=== PATIENT | female | born 1965 | race Caucasian/White ===

== ENCOUNTER 2023-03-23 15:26 | Inpatient (IN) | payer BC, OTHER ==
--- NOTE | 2023-03-23 16:40 | ED ---
General Adult HPI - General Chief complaint: Psychiatric Symptoms Stated complaint: Suicidal Time Seen by Provider: 03/23/23 15:54 Source: patient, RN notes reviewed Mode of arrival: ambulatory Limitations: no limitations - History of Present Illness Initial comments: Patient is a pleasant 57-year-old female presenting to emergency Department with depression and suicidal thoughts. Symptoms have progressed over the past 2-3 weeks. Patient has plan. No homicidal thoughts. No hallucinations. Patient is still taking her medications. Patient has decreased appetite. Patient is sleeping fine. - Related Data Home Medications Medication Instructions Recorded Confirmed Escitalopram [Lexapro] 10 mg PO DIRECTED 03/23/23 03/23/23 Escitalopram [Lexapro] 20 mg PO DIRECTED 03/23/23 03/23/23 Rexulti (Unknown Dose) 1 tab PO DIRECTED 03/23/23 03/23/23 busPIRone HCl [Buspar] 10 mg PO DIRECTED 03/23/23 03/23/23 hydroCHLOROthiazide [Hydrodiuril] 25 mg PO DIRECTED 03/23/23 03/23/23 trandolapriL [Mavik] 2 mg PO DIRECTED 03/23/23 03/23/23 Allergies Allergy/AdvReac Type Severity Reaction Status Date / Time No Known Allergies Allergy Verified 03/23/23 19:08 Review of Systems ROS Statement: Those systems with pertinent positive or pertinent negative responses have been documented in the HPI. ROS Other: All systems not noted in ROS Statement are negative. Constitutional: Denies: fever Eyes: Denies: eye pain ENT: Denies: ear pain Psychiatric: Reports: as per HPI, depression, suicidal thoughts Past Medical History Past Medical History: Hypertension History of Any Multi-Drug Resistant Organisms: None Reported Past Surgical History: Bariatric Surgery, EPS, Tubal Ligation Additional Past Surgical History / Comment(s): lap band, gastric sleeve Past Psychological History: Anxiety, Depression Smoking Status: Never smoker Past Alcohol Use History: Rare Past Drug Use History: None Reported General Exam Limitations: no limitations General appearance: alert, in no apparent distress Head exam: Present: atraumatic Eye exam: Present: normal appearance ENT exam: Present: normal exam Neck exam: Present: normal inspection Respiratory exam: Present: normal lung sounds bilaterally Cardiovascular Exam: Present: regular rate, normal rhythm Extremities exam: Present: normal inspection Neurological exam: Present: alert Psychiatric exam: Present: depressed Skin exam: Present: normal color Course Vital Signs 03/23/23 15:39 Temperature 99.1 F Pulse Rate 98 Respiratory 20 Rate Blood Pressure 167/91 O2 Sat by Pulse 95 Oximetry Medical Decision Making - Medical Decision Making Was pt. sent in by a medical professional or institution (, [facility], [employer], urgent care, hospital, or usp...) When possible be specific @ -No Did you speak to anyone other than the patient for history (EMS, parent, family, police, friend...)? What history was obtained from this source @ -No Did you review nursing and triage notes (agree or disagree)? Why? @ -I reviewed and agree with nursing and triage notes Were old charts reviewed (outside hosp., previous admission, EMS record, old EKG, old radiological studies, urgent care reports/EKG's, usp records)? Report findings @ -No old charts were reviewed Differential Diagnosis (chest pain, altered mental status, abdominal pain women, abdominal pain men, vaginal bleeding, weakness, fever, dyspnea, syncope, headache, dizziness, GI bleed, back pain, seizure, CVA, palpatations, mental health, musculoskeletal)? @ -Differential Mental Health Depression, anxiety, bipolar, psychosis, schizophrenia, borderline personality, situational depression, adjustment disorder, behavioral disorder, brain tumor, m alingering, substance abuse, encephalopathy, medication reaction, dementia, hypothyroidism, degenerative neurologic disorder, lupus.... This is not meant to be all-inclusive list EKG interpreted by me (3pts min.). @ -As above X-rays interpreted by me (1pt min.). @ -None done CT interpreted by me (1pt min.). @ -None done U/S interpreted by me (1pt. min.). @ -None done What testing was considered but not performed or refused? (CT, X-rays, U/S, labs)? Why? @ -None What meds were considered but not given or refused? Why? @ -None Did you discuss the management of the patient with other professionals (professionals i.e. RODRIGO Allen, [employer], lab, RT, psych nurse, child protective services social worker, beaver trapper, teacher, court officer, hospice case manager)? Give summary @ -Case was discussed with psychiatric nurse with plans for admission Was smoking cessation discussed for >3mins.? @ -No Was critical care preformed (if so, how long)? @ -No Were there social determinants of health that impacted care today? How? (Homelessness, low income, unemployed, alcoholism, drug addiction, transportation, low edu. Level, literacy, decrease access to med. care, mcc, rehab)? @ -No Was there de-escalation of care discussed even if they declined (Discuss DNR or withdrawal of care, Hospice)? DNR status @ -No What co-morbidities impacted this encounter? (DM, HTN, Smoking, COPD, CAD, Cancer, CVA, ARF, Chemo, Hep., AIDS, mental health diagnosis, sleep apnea, morbid obesity)? @ -None Was patient admitted / discharged? Hospital course, mention meds given and route, prescriptions, significant lab abnormalities, going to OR and other pertinent info. @ -Patient will be admitted for mental health services. Undiagnosed new problem with uncertain prognosis? @ -No Drug Therapy requiring intensive monitoring for toxicity (Heparin, Nitro, Insulin, Cardizem)? @ -No Were any procedures done? @ -No Diagnosis/symptom? @ -Depression and suicidal ideation Acute, or Chronic, or Acute on Chronic? @ -Acute on chronic, acute Uncomplicated (without systemic symptoms) or Complicated (systemic symptoms)? @ -default Side effects of treatment? @ -No Exacerbation, Progression, or Severe Exacerbation? @ -No Poses a threat to life or bodily function? How? (Chest pain, USA, NC, pneumonia, PE, COPD, DKA, ARF, appy, cholecystitis, CVA, Diverticulitis, Homicidal, Suicidal, threat to staff... and all critical care pts) @ -No - Lab Data Lab Results 03/23/23 Range/Units 17:39 Urine Opiates Screen Not Detected (NotDetected) Ur Oxycodone Screen Not Detected (NotDetected) Urine Methadone Screen Not Detected (NotDetected) Ur Propoxyphene Screen Not Detected (NotDetected) Ur Barbiturates Screen Not Detected (NotDetected) U Tricyclic Antidepress Not Detected (NotDetected) Ur Phencyclidine Scrn Not Detected (NotDetected) Ur Amphetamines Screen Not Detected (NotDetected) U Methamphetamines Scrn Not Detected (NotDetected) U Benzodiazepines Scrn Not Detected (NotDetected) Urine Cocaine Screen Not Detected (NotDetected) U Marijuana (THC) Screen Not Detected (NotDetected) Disposition Clinical Impression: Depression, Suicidal ideation Disposition: TRANSFER TO PSYCH HOSP/UNIT Is patient prescribed a controlled substance at d/c from ED?: No Referrals: Jose Alfredo Starkey MD [Primary Care Provider] - 1-2 days Time of Disposition: 20:00
[2023-03-23 18:09] LABS: Amphetamine Screen,Urine Not Detected (NotDetected); Barbiturate Screen,Urine Not Detected (NotDetected); Benzodiazepines Screen,Urine Not Detected (NotDetected); Cocaine Screen,Urine Not Detected (NotDetected); Methadone Screen, Urine Not Detected (NotDetected); Opiate Screen,Urine Not Detected (NotDetected); Oxycodone Screen, Urine Not Detected (NotDetected); Phencyclidine Screen,Urine Not Detected (NotDetected); Tricyclic Antidepressant,Urine Not Detected (NotDetected); Urn Cannabinoid Scrn Not Detected (NotDetected)
[2023-03-23] MEDS ORDERED: LORazepam 2 MG/ML INJ IM PRN (22:05)
[2023-03-23] MEDS ORDERED: MAG HYDROX/AL HYDROX/SIMETH 30 ML CUP PO PRN (22:05)
[2023-03-23] MEDS ORDERED: ACETAMINOPHEN TAB 325 MG TAB PO PRN (22:05)
[2023-03-23] MEDS ORDERED: MAGNESIUM HYDROXIDE 2,400 MG/30 ML CUP PO PRN (22:05)
[2023-03-23] MEDS ORDERED: LORazepam 1 MG TAB PO PRN (22:05)
[2023-03-23] MEDS ORDERED: DOXEPIN 25 MG CAP PO PRN (23:00)
[2023-03-23 23:03] LABS: Appearance,Urine Clear (Clear); Bilirubin,Urine Negative (Negative); Blood,Urine Negative (Negative); Color,Urine Colorless; Glucose,Urine (UA) Negative (Negative); Ketones,Urine Trace (Negative); Leukocyte Esterase,Urine Negative (Negative); Nitrite,Urine Negative (Negative); PH, Urine 6.5 (5.0-8.0); Protein,Urine Negative (Negative); Specific Gravity,Urine 1.003 (1.001-1.035); Urobilinogen,Urine <2.0 mg/dL (<2.0)
[2023-03-24] MEDS: ESCITALOPRAM 10 MG TAB PO SCH (08:55)
[2023-03-24] MEDS: hydroCHLOROthiazide 25 MG TAB PO SCH (08:56)
[2023-03-24] MEDS ORDERED: lisinopriL 20 MG TAB PO SCH (09:00)
[2023-03-24 09:39] LABS: Basophils % (A) 1 %; Eosinophils # (A) 0.1 k/uL (0-0.7); Eosinophils % (A) 1 %; HCT 45.8 % (34.0-46.0); HGB 15.1 gm/dL (11.4-16.0); Lymphocytes # (A) 1.4 k/uL (1.0-4.8); Lymphocytes % (A) 33 %; MCH 30.2 pg (25.0-35.0); MCV 91.7 fL (80.0-100.0); Mean Platelet Volume 7.4; Monocytes # (A) 0.4 k/uL (0-1.0); Monocytes % (A) 8 %; Neutrophils # (A) 2.4 k/uL (1.3-7.7); Neutrophils % (A) 55 %; Platelet Count 394 k/uL (150-450); RBC 4.99 m/uL (3.80-5.40); RDW 12.3 % (11.5-15.5); WBC 4.3 k/uL (3.8-10.6)
[2023-03-24 09:51] LABS: ALT 15 U/L (4-34); AST 26 U/L (14-36); African American GFR (CKD) 86 (>60 ml/min/1.73 sqM); Albumin 4.1 g/dL (3.5-5.0); Alkaline Phosphatase 59 U/L (38-126); Anion Gap 8 mmol/L; Bilirubin, Delta 0.3 mg/dL (0.0-0.2); Bilirubin,Unconjugated 0.2 mg/dL (0.0-1.1); Blood Urea Nitrogen 9 mg/dL (7-17); Calcium 9.6 mg/dL (8.4-10.2); Carbon Dioxide 31 mmol/L (22-30); Chloride 96 mmol/L (98-107); Glucose 93 mg/dL (74-99); Non-African American GFR(CKD) 74 (>60 ml/min/1.73 sqM); Potassium 4.1 mmol/L (3.5-5.1); Sodium 135 mmol/L (137-145); Total Bilirubin 0.5 mg/dL (0.2-1.3); Total Protein 6.9 g/dL (6.3-8.2)
--- NOTE | 2023-03-24 11:37 | P.HP ---
Psychiatric H&P - . H&P Date: 03/24/23 History & Physical: Allergies Allergy/AdvReac Type Severity Reaction Status Date / Time No Known Allergies Allergy Verified 03/23/23 19:08 Vital Signs Temp 98.8 F 03/23/23 22:57 Pulse 80 03/23/23 22:57 Resp 18 03/23/23 22:57 BP 122/77 03/23/23 22:57 Pulse Ox 98 03/23/23 22:57 FiO2 Intake & Output 03/23/23 03/24/23 03/24/23 18:59 06:59 18:59 Weight 66.224 kg 66.4 kg Laboratory Last Values WBC 4.3 k/uL (3.8-10.6) 03/24/23 08:37 RBC 4.99 m/uL (3.80-5.40) 03/24/23 08:37 Hgb 15.1 gm/dL (11.4-16.0) 03/24/23 08:37 Hct 45.8 % (34.0-46.0) 03/24/23 08:37 MCV 91.7 fL (80.0-100.0) 03/24/23 08:37 MCH 30.2 pg (25.0-35.0) 03/24/23 08:37 MCHC 33.0 g/dL (31.0-37.0) 03/24/23 08:37 RDW 12.3 % (11.5-15.5) 03/24/23 08:37 Plt Count 394 k/uL (150-450) 03/24/23 08:37 MPV 7.4 03/24/23 08:37 Neutrophils % 55 % 03/24/23 08:37 Lymphocytes % 33 % 03/24/23 08:37 Monocytes % 8 % 03/24/23 08:37 Eosinophils % 1 % 03/24/23 08:37 Basophils % 1 % 03/24/23 08:37 Neutrophils # 2.4 k/uL (1.3-7.7) 03/24/23 08:37 Lymphocytes # 1.4 k/uL (1.0-4.8) 03/24/23 08:37 Monocytes # 0.4 k/uL (0-1.0) 03/24/23 08:37 Eosinophils # 0.1 k/uL (0-0.7) 03/24/23 08:37 Basophils # 0.0 k/uL (0-0.2) 03/24/23 08:37 Sodium 135 mmol/L (137-145) L 03/24/23 08:37 Potassium 4.1 mmol/L (3.5-5.1) 03/24/23 08:37 Chloride 96 mmol/L (98-107) L 03/24/23 08:37 Carbon Dioxide 31 mmol/L (22-30) H 03/24/23 08:37 Anion Gap 8 mmol/L 03/24/23 08:37 BUN 9 mg/dL (7-17) 03/24/23 08:37 Creatinine 0.88 mg/dL (0.52-1.04) 03/24/23 08:37 Est GFR (CKD-EPI)AfAm 86 (>60 ml/min/1.73 sqM) 03/24/23 08:37 Est GFR (CKD-EPI)NonAf 74 (>60 ml/min/1.73 sqM) 03/24/23 08:37 Glucose 93 mg/dL (74-99) 03/24/23 08:37 Calcium 9.6 mg/dL (8.4-10.2) 03/24/23 08:37 Total Bilirubin 0.5 mg/dL (0.2-1.3) 03/24/23 08:37 Conjugated Bilirubin 0.0 mg/dL (0.0-0.3) 03/24/23 08:37 Unconjugated Bilirubin 0.2 mg/dL (0.0-1.1) 03/24/23 08:37 Delta Bilirubin 0.3 mg/dL (0.0-0.2) H 03/24/23 08:37 AST 26 U/L (14-36) 03/24/23 08:37 ALT 15 U/L (4-34) 03/24/23 08:37 Alkaline Phosphatase 59 U/L (38-126) 03/24/23 08:37 Total Protein 6.9 g/dL (6.3-8.2) 03/24/23 08:37 Albumin 4.1 g/dL (3.5-5.0) 03/24/23 08:37 TSH 0.699 mIU/L (0.465-4.680) 03/24/23 08:37 Urine Color Colorless 03/23/23 17:39 Urine Appearance Clear (Clear) 03/23/23 17:39 Urine pH 6.5 (5.0-8.0) 03/23/23 17:39 Ur Specific [place] 1.003 (1.001-1.035) 03/23/23 17:39 Urine Protein Negative (Negative) 03/23/23 17:39 Urine Glucose (UA) Negative (Negative) 03/23/23 17:39 Urine Ketones Trace (Negative) H 03/23/23 17:39 Urine Blood Negative (Negative) 03/23/23 17:39 Urine Nitrite Negative (Negative) 03/23/23 17:39 Urine Bilirubin Negative (Negative) 03/23/23 17:39 Urine Urobilinogen <2.0 mg/dL (<2.0) 03/23/23 17:39 Ur Leukocyte Esterase Negative (Negative) 03/23/23 17:39 Urine Opiates Screen Not Detected (NotDetected) 03/23/23 17:39 Ur Oxycodone Screen Not Detected (NotDetected) 03/23/23 17:39 Urine Methadone Screen Not Detected (NotDetected) 03/23/23 17:39 Ur Propoxyphene Screen Not Detected (NotDetected) 03/23/23 17:39 Ur Barbiturates Screen Not Detected (NotDetected) 03/23/23 17:39 U Tricyclic Antidepress Not Detected (NotDetected) 03/23/23 17:39 Ur Phencyclidine Scrn Not Detected (NotDetected) 03/23/23 17:39 Ur Amphetamines Screen Not Detected (NotDetected) 03/23/23 17:39 U Methamphetamines Scrn Not Detected (NotDetected) 03/23/23 17:39 U Benzodiazepines Scrn Not Detected (NotDetected) 03/23/23 17:39 Urine Cocaine Screen Not Detected (NotDetected) 03/23/23 17:39 U Marijuana (THC) Screen Not Detected (NotDetected) 03/23/23 17:39 Coronavirus (PCR) Not Detected (Not Detectd) 03/23/23 20:14 03/24/23 11:36 IDENTIFYING DATA: Patient is a , employed, 57-year-old female sam ledbetter presents to the hospital on 03/23/2023 for worsening depression and suicidal ideation the context of bereavement. HPI: Patient presented to the hospital on 03/23/2023, brought into the emergency department by family for psychiatric assessment. The patient has been dealing with significant grief after the unexpected deaths of her brother and her [id number]. She reported to the PES nurse that she has been suicidal with plans to overdose on Ativan, Rexulti, and Lexapro. The patient signed herself voluntarily onto the psychiatric unit. Upon evaluation on the psychiatric unit, the patient informs this provider that her brother 3 weeks ago. A week and a half later, the patient reports that her [id number] also . She states that both deaths were unexpected. She does report that over the past 3 weeks she has been experiencing significant depression and anxiety. She reports a decreased appetite with unintentional weight loss of 10 pounds. She endorses anhedonia, helplessness, hopelessness, and suicidal ideation with a plan to overdose. However, the patient reports that she made no attempts. She does report a previous attempt at suicide back in 1986 by cutting her wrists. 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 She is currently on leave from work. She does report elevated anxiety and panic prior to work. The patient does not endorse any auditory or visual hallucinations. She denies any paranoia or other delusions. She reports no significant symptoms of bipolar disorder. She denies any periods of excessive energy, grandiosity, or increased goal-directed activity. PAST PSYCHIATRIC HISTORY: Patient states that she has been previous diagnoses of depression and anxiety. She recalls being previously prescribed Pamelor and Celexa. She is currently on a regimen of Lexapro, Buspar, and Rexulti. She reports that she was last hospitalized on this psychiatric unit back in 1986. She is currently open with [facility] social work nurse and sees Dr. Pepe. Prior to this, she was open with Dr. Monique. He reports one prior attempt at suicide back in 1986 by cutting herself. She was previously attending partial hospitalization program back in 1992. PMH: Past Medical History: Hypertension History of Any Multi-Drug Resistant Organisms: None Reported Past Surgical History: Bariatric Surgery, EPS, Tubal Ligation Additional Past Surgical History / Comment(s): lap band, gastric sleeve Past Psychological History: Anxiety, Depression Smoking Status: Never smoker Past Alcohol Use History: Rare Past Drug Use History: None Reported ALLERGIES: NO KNOWN DRUG ALLERGIES CHEMICAL DEPENDENCY HISTORY: The patient denies any significant alcohol use. She reports no marijuana, tobacco, or illicit drug use. FAMILY PSYCHIATRIC/SUBSTANCE USE HISTORY: The patient reports that her sister abuses alcohol. She reports that many family members including both of her parents and multiple siblings have depression. SOCIAL HISTORY: Patient was born and raised in [place], [place]. She is currently to her for one year. This is her second marriage. Her first from cancer 6 years ago. She has 2 sons. She reports good support from her family. She currently lives with her . 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 She reports no legal history or service. She states that she is [employer]. MENTAL STATUS EXAM: General Appearance: Patient appears to be stated age is alert, directable, and attempts to cooperate. Patient appears to have fair hygiene and grooming. Behavior: Patient is seated without any agitated behavior. Eye contact is appropriate. Patient is appropriately tearful throughout the interview. Speech: Patient's speech is fluent and nonpressured. Mood/Affect: Patient reports their mood is depressed, affect is congruent and tearful. Suicidality/Homicidality: Patient is denying any current suicidal or homicidal ideation. Perceptions: Patient denies any visual hallucinations and denies any auditory hallucinations Though content/process: There is no evidence of any delusional thought content and thought process is linear and goal-directed. Memory and concentration: AOX3, grossly intact for the purposes of this session. Can spell "WORLD" backwards Judgment and insight: Fair STRENGTHS/WEAKNESSES: Strength is that the patient has good insight, supportive family, orthodox beliefs against suicide, and is actively seeking help. Weakness is that the patient has prior attempts at suicide. INTELLECT: average IMPRESSIONS: Major depressive disorder, recurrent, severe, with anxious features PLAN: -Patient is admitted under voluntary status to MHU for stabilization of psychiatric symptoms and safety. Patient signed adult voluntary form and medication consent and is placed in patient's chart. -Approximately 30 minutes were spent providing the patient with psychoeducation and bereavement counseling. -Medications : Will start patient on Lexapro 30 mg by mouth daily for depression/anxiety BuSpar 15 mg by mouth twice a day for anxiety Restoril 7.5 mg by mouth at bedtime for acute stress -Ativan PRN for agitation/aggression -Patient was informed of the risks, benefits and side effects of the medication and patient verbally consented to taking the medications. Patient signed med consent form and was placed in chart. -Internal Medicine consult to perform medical evaluation and physical. -SW on board for discharge planning. Encourage patient to participate in groups to work on coping skills. 03/24/23 11:36
--- NOTE | 2023-03-24 14:52 | P.MDCNMH ---
History of Present Illness H&P Date: 03/24/23 HISTORY OF PRESENT ILLNESS This is a 57-year-old female with past medical history of hypertension, g astroesophageal reflux disease, major depressive disorder, bulimia nervosa, obstructive sleep apnea. Patient presented to [facility] emergency center yesterday with concern for depression and suicidal thoughts of been going on for the past 2-3 weeks with plan to overdose. Triggering factor seems to be the of her brother and also [id number]. No homicidal thoughts. No hallucinations. Patient's been taking all of her medications as directed. She has been sleeping adequately but does have a decreased appetite. Her initial blood pressure 167/91, afebrile, heart rate 98, pulse ox 95% on room air. Urine drug screen was negative. CBC within normal limits. Sodium 135, potassium 4.1, chloride 96, CO2 31, BUN 9 and creatinine 0.88. TSH 0.699. Liver function tests within normal limits. Glucose 74. Calcium 9.6. Urinalysis negative for infection. Covid 19 not detected. Patient is seen today on the mental health unit. REVIEW OF SYSTEMS Constitutional: No fever, no chills, no night sweats. No weight change. No weakness, fatigue or lethargy. No daytime sleepiness. EENT: No headache. No blurred vision or double vision, no loss of vision. No loss of Hearing, no ringing in the ears, no dizziness. No nasal drainage or congestion. No epistaxis. No sore throat. Lungs: No shortness of breath, cough, no sputum production. No wheezing. Cardiovascular: No chest pain, no lower extremity edema. No palpitations. No paroxysmal nocturnal dyspnea. No orthopnea. No lightheadedness or dizziness. No syncopal episodes. Abdominal: No abdominal pain. No nausea, vomiting. No diarrhea. No constipation. No bloody or tarry stools. No loss of appetite. Genitourinary: No dysuria, increased frequency, urgency. No urinary retention. Musculoskeletal: No myalgias. No muscle weakness, no gait dysfunction, no frequent falls. No back pain. No neck pain. Integumentary: No wounds, no lesions. No rash or pruritus. No unusual bruising. No change in hair or nails. Neurologic: No aphasia. No facial droop. No change in mentation. No head injury. No headache. No paralysis. No paresthesia. Psychiatric: Reports depression. Reports anxiety. No mood swings. Endocrine: No abnormal blood sugars. No weight change. No excessive sweating or thirst. No cold intolerance. MEDICAL HISTORY Hypertension Gastroesophageal reflux disease Major depressive disorder Bulimia no gross Obstructive sleep apnea SURGICAL HISTORY Gastric sleeve with hernia repair 05/2016 Tonsil removal 1969 Tubal ligation 1997 SOCIAL HISTORY Patient is a nonsmoker. No illicit drug use. She does drink alcohol 2-3 times per week. No marijuana use. FAMILY HISTORY Father at age 66 from colon cancer with history of hypertension and [place]. Mother at age 74 from lung cancer with history of hypertension. Patient has 1 brother that has recently with throat cancer. Patient has 4 sisters and 3 have diabetes and 3 with hypertension one with history of [place]. Patient's 1 son with no major medical problems and one daughter healthy. PHYSICAL EXAMINATION Gen: This is a 57-year-old female. She is noted to be in no acute distress. HEENT: Head is atraumatic, normocephalic. Pupils equal, round. Sclerae is anicteric. NECK: Supple. No JVD. No lymphadenopathy. No thyromegaly. LUNGS: Clear to auscultation. No wheezes or rhonchi. No intercostal retr actions. HEART: Regular rate and rhythm. No murmur. ABDOMEN: Soft. Bowel sounds are present. No masses. No tenderness. EXTREMITIES: No pedal edema. No calf tenderness. NEUROLOGICAL: Patient is awake, alert and oriented x3. Cranial nerves 2 through 12 are grossly intact. ASSESSMENT AND PLAN 1. Depression with suicidal ideation. Patient admitted to the mental health unit. Continue current plan per psychiatry. 2. Generalized anxiety disorder. Continue as in #1. 3. Hypertension. Continue his hydrochlorothiazide 25 mg daily. 4. Gastroesophageal reflux disease. Continue omeprazole 40 mg daily 5. Obstructive sleep apnea, stable. Thank you kindly for this consultation. We will be happy to follow along with you as needed. Impression and plan of care have been directed as dictated by the signing physician. Jnais Rosa nurse practitioner acting as scribe for signing physician. Past Medical History Past Medical History: GERD/Reflux, Hypertension, Sleep Apnea/CPAP/BIPAP History of Any Multi-Drug Resistant Organisms: None Reported Past Surgical History: Bariatric Surgery, Tonsillectomy, Tubal Ligation Additional Past Surgical History / Comment(s): lap band, gastric sleeve Past Anesthesia/Blood Transfusion Reactions: No Reported Reaction Smoking Status: Never smoker - Past Family History Mother History Unknown: Yes Medications and Allergies Home Medications Medication Instructions Recorded Confirmed Type Escitalopram [Lexapro] 30 mg PO DAILY 03/23/23 03/24/23 History Omeprazole 40 mg PO AC-[id number] 03/23/23 03/24/23 History busPIRone HCl [Buspar] 10 mg PO BID 03/23/23 03/24/23 History hydroCHLOROthiazide [Hydrodiuril] 25 mg PO DAILY 03/23/23 03/24/23 History trandolapriL [Mavik] 2 mg PO BID 03/23/23 03/24/23 History Brexpiprazole [Rexulti] 2 mg PO HS 03/24/23 03/24/23 History Allergies Allergy/AdvReac Type Severity Reaction Status Date / Time No Known Allergies Allergy Verified 03/23/23 19:08 Physical Exam Vitals: Vital Signs Temp Pulse Pulse Resp BP BP Pulse Ox 03/23/23 22:57 98.8 F 80 18 122/77 98 03/23/23 15:39 99.1 F 98 20 167/91 95 Intake and Output 03/23/23 03/24/23 03/24/23 22:59 06:59 14:59 Other: Weight 66.4 kg 66.4 kg Cranial Nerve Examination - Cranial Nerves Cranial Nerve I- Olfactory: Intact Cranial Nerve II- Optic: Intact Cranial Nerve III- Oculomotor: Intact Cranial Nerve IV- Trochlear: Intact Cranial Nerve V- Trigeminal: Intact Cranial Nerve - Abducens: Intact Cranial Nerve VII- Facial: Intact Cranial Nerve VIII- Auditory: Intact Cranial Nerve IX- Glossopharyngeal: Intact Cranial Nerve X- Vagus: Intact Cranial Nerve XI- Accessory: Intact Cranial Nerve XII- Hypoglossal: Intact Results CBC & Chem 7: 03/24/23 08:37 03/24/23 08:37 Labs: Abnormal Lab Results - Last 24 Hours (Table) 03/23/23 03/24/23 Range/Units 17:39 08:37 Sodium 135 L (137-145) mmol/L Chloride 96 L (98-107) mmol/L Carbon Dioxide 31 H (22-30) mmol/L Delta Bilirubin 0.3 H (0.0-0.2) mg/dL Urine Ketones Trace H (Negative)
[2023-03-24 16:09] LABS: Chol/HDL Ratio 2.38 Ratio; LDL Cholesterol,Calculated 104.9 mg/dL (0.0-131.0); VLDL Calculation 11.08 mg/dL (5.00-40.00)
[2023-03-24] MEDS: TEMAZEPAM 7.5 MG CAP PO SCH (21:44)
[2023-03-24] MEDS: busPIRone HCl 5 MG TAB PO SCH (21:44)
[2023-03-25 06:58] VITALS: RESP 14
[2023-03-25] MEDS: ESCITALOPRAM 10 MG TAB PO SCH (09:49)
[2023-03-25] MEDS: busPIRone HCl 5 MG TAB PO SCH ×2 (09:49→21:35)
[2023-03-25] MEDS: hydroCHLOROthiazide 25 MG TAB PO SCH (09:49)
[2023-03-25] MEDS: PANTOPRAZOLE 40 MG TABLET PO SCH (09:50)
--- NOTE | 2023-03-25 11:34 | P.PN ---
Progress Note - Text Progress Note Date: 03/25/23 Interval History: Patient was seen in group and was directable and agreeable to speak with video game script writer in the office. Patient is currently reporting suicidal ideation but states that it is not as present as it was before this admission. She is reporting no homicidal ideation. She rates her severity of symptoms 7 out of 10 with 10 being very severe. She reports improved sleep and decreased anxiety. She also reports that she has been less tearful. She has been adherent with her medications and is not reporting any significant side effects. At this time patient denies any suicidal or homical ideations, intent or plan. Patient denies any auditory, visual hallucinations and denies any paranoia or delusions. Patient denies any side effects from the medications and has been compliant with meds. She is agreeable to switching to Pamelor. Mental Status Exam: General Appearance: Patient appears to be stated age is alert, directable, and cooperative. Behavior: Patient is calmly seated without any agitated behavior. Speech: Patient's speech is fluent and nonpressured. Mood/Affect: Mood is improving mildly, affect is congruent and sad Suicidality/Homicidality: Patient denies any current suicidal or homicidal ideation. Perceptions: Patient denies any visual hallucinations and denies any auditory hallucinations Though content/process: There is no evidence of any delusional thought content and thought process is linear and goal-directed. Memory and concentration: AOX3, grossly intact for the purposes of this session Judgment and insight: Improving mildly Vital Signs Temp 97 F L 03/25/23 06:56 Pulse 75 03/25/23 09:53 Resp 14 03/25/23 06:56 BP 100/59 03/25/23 09:53 Pulse Ox 98 03/23/23 22:57 FiO2 Laboratory Results - Last 24 Hours 03/24/23 03/24/23 08:37 08:[address] Glu mg/dL 120 Hemoglobin A1c 5.8 Triglycerides 55.40 Cholesterol 200.00 LDL Cholesterol, Calc 104.9 VLDL Cholesterol, Calc 11.08 HDL Cholesterol 84.00 H Cholesterol/HDL Ratio 2.38 Assessment Major depressive disorder, recurrent, severe, with anxious features Plan: -Patient continues to meet criteria for inpatient psychiatric admission for s ymptom stabilization and safety. Patient has signed adult voluntary form and medication consent and was placed in patient's chart. -Medications: Discontinue Lexapro. Start Pamelor 10 mg by mouth at bedtime for depression/anxiety BuSpar 15 mg by mouth twice a day for anxiety Restoril 7.5 mg by mouth at bedtime for acute stress -When necessary Ativan for agitation/aggression. -SW on board for discharge planning. Encouraged the patient to participate in milieu.
[2023-03-25] MEDS ORDERED: NORTRIPTYLINE 10 MG CAP PO SCH (21:00)
[2023-03-25] MEDS: TEMAZEPAM 7.5 MG CAP PO SCH (21:35)
[2023-03-26] MEDS: hydroCHLOROthiazide 25 MG TAB PO SCH (08:55)
[2023-03-26] MEDS: busPIRone HCl 5 MG TAB PO SCH ×2 (08:55→21:35)
[2023-03-26] MEDS: PANTOPRAZOLE 40 MG TABLET PO SCH (08:55)
--- NOTE | 2023-03-26 10:21 | P.PN ---
Progress Note - Text Progress Note Date: 03/26/23 Interval History: Patient was seen in group and was directable and agreeable to speak with mortgage underwriter in the office. Currently, the patient reports that she is feeling significant better in regards to her target symptoms of depression. She reports that she write the letter for her brother. She reports that she is getting significant support from her . She states that she had a good discussion with him regarding her leaving her current job at [employer]. The patient is currently denying any suicidal or homicidal ideation, intention, and/or plan. She is not reporting any auditory or visual hallucinations. She denies any paranoia or other delusions. She reports that she is sleeping well. She reports no significant side effects of her medication. Mental Status Exam: General Appearance: Patient appears to be stated age is alert, directable, and cooperative. Behavior: Patient is calmly seated without any agitated behavior. Speech: Patient's speech is fluent and nonpressured. Mood/Affect: Mood is improving mildly, affect is congruent and euthymic today Suicidality/Homicidality: Patient denies any current suicidal or homicidal ideation. Perceptions: Patient denies any visual hallucinations and denies any auditory hallucinations Though content/process: There is no evidence of any delusional thought content and thought process is linear and goal-directed. Memory and concentration: AOX3, grossly intact for the purposes of this session Judgment and insight: Improving mildly Vital Signs Temp 97.1 F L 03/26/23 08:56 Pulse 82 03/26/23 08:56 Resp 14 03/25/23 06:56 BP 126/69 03/26/23 08:56 Pulse Ox 98 03/23/23 22:57 FiO2 Assessment Major depressive disorder, recurrent, severe, with anxious features Plan: -Patient continues to meet criteria for inpatient psychiatric admission for symptom stabilization and safety. Patient has signed adult voluntary form and medication consent and was placed in patient's chart. Anticipate discharge tomorrow. -Medications: Increase Pamelor to 20 mg by mouth at bedtime for depression/anxiety BuSpar 15 mg by mouth twice a day for anxiety Restoril 7.5 mg by mouth at bedtime for acute stress -When necessary Ativan for agitation/aggression. -SW on board for discharge planning. Encouraged the patient to participate in milieu.
[2023-03-26] MEDS ORDERED: NORTRIPTYLINE 10 MG CAP PO SCH (21:00)
[2023-03-26] MEDS: TEMAZEPAM 7.5 MG CAP PO SCH (21:36)
[2023-03-27 06:52] VITALS: BP 101/59; PULSE 50; TEMP 96.8
[2023-03-27] MEDS: busPIRone HCl 5 MG TAB PO SCH (09:08)
[2023-03-27] MEDS: PANTOPRAZOLE 40 MG TABLET PO SCH (09:08)
[2023-03-27] MEDS: hydroCHLOROthiazide 25 MG TAB PO SCH (09:08)
--- NOTE | 2023-03-27 11:12 | P.DS ---
Providers Date of admission: 03/23/23 22:03 Expected date of discharge: 03/27/23 Attending physician: Benito Berger MD Consults: 03/23/23 22:05 Consult Physician Routine Consulting Provider: Jose Alfredo Starkey Consult Reason/Comments: H&P , medical followup. Do you want consulting provider notified?: Yes, Notify in am Primary care physician: Jose Alfredo Jaky - Discharge Diagnosis(es) (1) Major depressive disorder, recurrent episode, severe with anxious distress Current Visit: Yes Status: Acute Priority: High Hospital Course: Admission HPI: Patient is a , employed, 57-year-old female who presents to the hospital on 03/23/2023 for worsening depression and suicidal ideation the context of bereavement. Patient presented to the hospital on 03/23/2023, brought into the emergency department by family for psychiatric assessment. The patient has been dealing with significant grief after the unexpected deaths of her brother and her [id number]. She reported to the PES nurse that she has been suicidal with plans to overdose on Ativan, Rexulti, and Lexapro. The patient signed herself voluntarily onto the psychiatric unit. Upon evaluation on the psychiatric unit, the patient informs this provider that her brother 3 weeks ago. A week and a half later, the patient reports that her [id number] also . She states that both deaths were unexpected. She does report that over the past 3 weeks she has been ex periencing significant depression and anxiety. She reports a decreased appetite with unintentional weight loss of 10 pounds. She endorses anhedonia, helplessness, hopelessness, and suicidal ideation with a plan to overdose. However, the patient reports that she made no attempts. She does report a previous attempt at suicide back in 1986 by cutting her wrists. 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 She is currently on leave from work. She does report elevated anxiety and panic prior to work. The patient does not endorse any auditory or visual hallucinations. She denies any paranoia or other delusions. She reports no significant symptoms of bipolar disorder. She denies any periods of excessive energy, grandiosity, or increased goal-directed activity. Patient states that she has been previous diagnoses of depression and anxiety. She recalls being previously prescribed Pamelor and Celexa. She is currently on a regimen of Lexapro, Buspar, and Rexulti. She reports that she was last hospitalized on this psychiatric unit back in 1986. She is currently open with [facility] social science instructor and sees Dr. Pepe. Prior to this, she was open with Dr. Monique. He reports one prior attempt at suicide back in 1986 by cutting herself. She was previously attending partial hospitalization program back in 1992. Hospital course: Upon admission to the unit patient was initially presenting as overtly depressed, tearful, and suicidal. Patient was however directable and agreeable to commence treatment. Patient got along well with other patients on the unit and followed unit protocol. Patient was compliant with the medications and denied any side effects throughout hospital course. Patient was started on her home medications of Lexapro and BuSpar however her rexulti was held due to not being on formulary. She was started on Restoril in order to address her acute stressors. Patient spoke of her stressors and engaged in therapy both group and individual. Patient was also seen by medical team for history and physical exam. The patient was agreeable to transitioning from Lexapro to Pamelor as she was on this medication in the past. She tolerated the medication changes well. Over the course of the hospitalization, she displayed significant improvement in regards her target symptoms of depression and suicidal ideation. She became less tearful and became more future and goal oriented. She attended groups with a high-level participation and also was able to write a letter to her brother in order to help with her grief. On the day of discharge, the patient is not reporting any suicidal or homicidal ideation, intention, and/or plan. She is not reporting any auditory or visual hallucinations. She reports no paranoia or other delusions. She reports no access to firearms or other weapons. The patient does not have a significant history substance abuse however was counseled at great length on abstaining from all substances including alcohol, tobacco, marijuana, and all illicit drugs. She has been adherent with her medication and reported no significant side effects. She denied any medical issues or concerns and reported no chest pain, shortness of breath, palpitations, headache, akathisia, or tardive dyskinesia. She was counseled at length the importance of medication adherence and appropriate outpatient follow-up. As the patient no longer met criteria for continued inpatient psychiatric hospitalization, she was subsequently discharged after appropriate safety planning. Mental status exam: General Appearance: Patient appears to be stated age is alert, pleasant, and cooperative. Patient is in no acute distress and has fair hygiene and grooming Behavior: Patient is calmly seated without any agitated behavior. Speech: Patient's speech is fluent and nonpressured. Mood/Affect: Patient reports their mood is "much better", affect is congruent and euthymic to bright. Suicidality/Homicidality: Patient vehemently denies any suicidal or homicidal ideation, intention, and/or plan. Perceptions: Patient denies any auditory or visual hallucinations. Though content/process: There is no evidence of any delusional thought content and thought process is linear and goal-directed. The patient is future and goal oriented. She plans to run a marathon. Memory and concentration: AOX3, grossly intact for the purposes of this session. Can spell "WORLD" backwards correctly. Judgment and insight: Improved Impression: Major depressive disorder, recurrent, severe, with anxious features Plan: -Continue with discharge today as patient has improved and stabilized psychiatrically and is not currently an imminent threat to herself and/or others. Patient will chronically be at elevated risk due to a prior attempt at suicide back in 1986. However, she has numerous protective factors including a supportive family, temple beliefs against suicide, and future goal orientation. -Continue medications: Pamelor 20 mg by mouth at bedtime for depression/anxiety Restoril 7.5 mg daily at bedtime for acute stress - 3 day prescription only BuSpar 15 mg by mouth twice a day for anxiety -Patient was counseled on the need for medication compliance and appropriate follow-up at mental health and also primary care for medical issues. Patient verbalized understanding and agreed. -Social work to arrange for and conduct family meeting to ensure safety upon discharge and answer any questions/concerns. Social work also to arrange for patients follow up appointments with [facility] social science instructor for psychiatric care along with follow up with primary care provider. -Patient counseled on abstaining from recreational drugs and marijuana and alcohol. Was informed/educated on the adverse effects on their physical and mental health. Patient verbally agreed and understood. -Patient was instructed to return to the hospital or seek immediate medical care if their psychiatric or medical symptoms do worsen or reoccur. -Psychoeducation and supportive therapy provided to patient. Risks and benefits of pharmacological treatment versus the risks and benefits of nontreatment weighed and discussed. Informed consent discussion held. Common side effects of psychotropics discussed such as, but not limited to headache, GI disturbance, sexual dysfunction, movement disorders, sedation, and orthostatic hypotension. Life threatening and blackbox warnings of prescribed medications also discussed. Potential risks of operating a vehicle or heavy machinery discussed with patient at length. Advised on importance of compliance and a reliable and responsible manner. Patient advised to review FDA consumer labeling of all medications prior to taking. Patient verbalized understanding of potential risks, and agrees with current treatment plan. Patient advised to medically contact physician/emergency personnel if any acute changes in condition occur. Vital Signs Temp 96.8 F L 03/27/23 06:35 Pulse 50 L 03/27/23 06:35 Resp 14 03/27/23 06:35 BP 101/59 03/27/23 06:35 Pulse Ox 98 03/27/23 06:35 FiO2 Laboratory Results WBC 4.3 k/uL (3.8-10.6) 03/24/23 08:37 RBC 4.99 m/uL (3.80-5.40) 03/24/23 08:37 Hgb 15.1 gm/dL (11.4-16.0) 03/24/23 08:37 Hct 45.8 % (34.0-46.0) 03/24/23 08:37 MCV 91.7 fL (80.0-100.0) 03/24/23 08:37 MCH 30.2 pg (25.0-35.0) 03/24/23 08:37 MCHC 33.0 g/dL (31.0-37.0) 03/24/23 08:37 RDW 12.3 % (11.5-15.5) 03/24/23 08:37 Plt Count 394 k/uL (150-450) 03/24/23 08:37 MPV 7.4 03/24/23 08:37 Neutrophils % 55 % 03/24/23 08:37 Lymphocytes % 33 % 03/24/23 08:37 Monocytes % 8 % 08/29/23 08:37 Eosinophils % 1 % 03/24/23 08:37 Basophils % 1 % 03/24/23 08:37 Neutrophils # 2.4 k/uL (1.3-7.7) 03/24/23 08:37 Lymphocytes # 1.4 k/uL (1.0-4.8) 03/24/23 08:37 Monocytes # 0.4 k/uL (0-1.0) 03/24/23 08:37 Eosinophils # 0.1 k/uL (0-0.7) 03/24/23 08:37 Basophils # 0.0 k/uL (0-0.2) 03/24/23 08:37 Sodium 135 mmol/L (137-145) L 03/24/23 08:37 Potassium 4.1 mmol/L (3.5-5.1) 03/24/23 08:37 Chloride 96 mmol/L (98-107) L 03/24/23 08:37 Carbon Dioxide 31 mmol/L (22-30) H 03/24/23 08:37 Anion Gap 8 mmol/L 03/24/23 08:37 BUN 9 mg/dL (7-17) 03/24/23 08:37 Creatinine 0.88 mg/dL (0.52-1.04) 03/24/23 08:37 Est GFR (CKD-EPI)AfAm 86 (>60 ml/min/1.73 sqM) 03/24/23 08:37 Est GFR (CKD-EPI)NonAf 74 (>60 ml/min/1.73 sqM) 03/24/23 08:37 Glucose 93 mg/dL (74-99) 03/24/23 08:[address] Glu mg/dL 120 mg/dL 03/24/23 08:37 Hemoglobin A1c 5.8 % (<=6.0) 03/24/23 08:37 Calcium 9.6 mg/dL (8.4-10.2) 03/24/23 08:37 Total Bilirubin 0.5 mg/dL (0.2-1.3) 03/24/23 08:37 Conjugated Bilirubin 0.0 mg/dL (0.0-0.3) 03/24/23 08:37 Unconjugated Bilirubin 0.2 mg/dL (0.0-1.1) 03/24/23 08:37 Delta Bilirubin 0.3 mg/dL (0.0-0.2) H 03/24/23 08:37 AST 26 U/L (14-36) 03/24/23 08:37 ALT 15 U/L (4-34) 03/24/23 08:37 Alkaline Phosphatase 59 U/L (38-126) 03/24/23 08:37 Total Protein 6.9 g/dL (6.3-8.2) 03/24/23 08:37 Albumin 4.1 g/dL (3.5-5.0) 03/24/23 08:37 Triglycerides 55.40 mg/dL (0.00-149.00) 03/24/23 08:37 Cholesterol 200.00 mg/dL (0.00-200.00) 03/24/23 08:37 LDL Cholesterol, Calc 104.9 mg/dL (0.0-131.0) 03/24/23 08:37 VLDL Cholesterol, Calc 11.08 mg/dL (5.00-40.00) 03/24/23 08:37 HDL Cholesterol 84.00 mg/dL (40.00-60.00) H 03/24/23 08:37 Cholesterol/HDL Ratio 2.38 Ratio 03/24/23 08:37 TSH 0.699 mIU/L (0.465-4.680) 03/24/23 08:37 Urine Color Colorless 03/23/23 17:39 Urine Appearance Clear (Clear) 03/23/23 17:39 Urine pH 6.5 (5.0-8.0) 03/23/23 17:39 Ur Specific [place] 1.003 (1.001-1.035) 03/23/23 17:39 Urine Protein Negative (Negative) 03/23/23 17:39 Urine Glucose (UA) Negative (Negative) 03/23/23 17:39 Urine Ketones Trace (Negative) H 03/23/23 17:39 Urine Blood Negative (Negative) 03/23/23 17:39 Urine Nitrite Negative (Negative) 03/23/23 17:39 Urine Bilirubin Negative (Negative) 03/23/23 17:39 Urine Urobilinogen <2.0 mg/dL (<2.0) 03/23/23 17:39 Ur Leukocyte Esterase Negative (Negative) 03/23/23 17:39 Urine Opiates Screen Not Detected (NotDetected) 03/23/23 17:39 Ur Oxycodone Screen Not Detected (NotDetected) 03/23/23 17:39 Urine Methadone Screen Not Detected (NotDetected) 03/23/23 17:39 Ur Propoxyphene Screen Not Detected (NotDetected) 03/23/23 17:39 Ur Barbiturates Screen Not Detected (NotDetected) 03/23/23 17:39 U Tricyclic Antidepress Not Detected (NotDetected) 03/23/23 17:39 Ur Phencyclidine Scrn Not Detected (NotDetected) 03/23/23 17:39 Ur Amphetamines Screen Not Detected (NotDetected) 03/23/23 17:39 U Methamphetamines Scrn Not Detected (NotDetected) 03/23/23 17:39 U Benzodiazepines Scrn Not Detected (NotDetected) 03/23/23 17:39 Urine Cocaine Screen Not Detected (NotDetected) 03/23/23 17:39 U Marijuana (THC) Screen Not Detected (NotDetected) 03/23/23 17:39 Coronavirus (PCR) Not Detected (Not Detectd) 03/23/23 20:14 Allergies Allergy/AdvReac Type Severity Reaction Status Date / Time No Known Allergies Allergy Verified 03/23/23 19:08 Patient Condition at Discharge: Stable Plan - Discharge Summary Discharge Rx Participant: No New Discharge Prescriptions: New Nortriptyline [Pamelor] 20 mg PO HS 30 Days #60 cap Temazepam [Restoril] 7.5 mg PO HS 3 Days #3 cap Continue hydroCHLOROthiazide [Hydrodiuril] 25 mg PO DAILY 30 Days #30 tab trandolapriL [Mavik] 2 mg PO BID Omeprazole 40 mg PO AC-BRKFST 30 Days #30 cap Changed busPIRone HCl [Buspar] 15 mg PO BID 30 Days #90 tab Discontinued Escitalopram [Lexapro] 30 mg PO DAILY Brexpiprazole [Rexulti] 2 mg PO HS Discharge Medication List trandolapriL [Mavik] 2 mg PO BID 03/23/23 [History] Nortriptyline [Pamelor] 20 mg PO HS 30 Days #60 cap 03/27/23 [Rx] Omeprazole 40 mg PO AC-BRKFST 30 Days #30 cap 03/27/23 [Rx] Temazepam [Restoril] 7.5 mg PO HS 3 Days #3 cap 03/27/23 [Rx] busPIRone HCl [Buspar] 15 mg PO BID 30 Days #90 tab 03/27/23 [Rx] hydroCHLOROthiazide [Hydrodiuril] 25 mg PO DAILY 30 Days #30 tab 03/27/23 [Rx] Follow up Appointment(s)/Referral(s): [facility] [Outside] - 03/31/23 1:00 pm ([facility] may call to change time as needed. ) Jose Alfredo Starkye MD [Primary Care Provider] - 1-2 days Patient Instructions/Handouts: Anxiety (GEN) Activity/Diet/Wound Care/Special Instructions: Avoid the use of street drugs and alcohol. Take all medications as prescribed. When you are in need of refills on your medications, please contact your medical provider and/or outpatient psychiatrist/provider to have this done. Please go to your scheduled outpatient appointment for aftercare treatment. If symptoms return or become worse, call the crisis line at and/or go to the nearest emergency room for evaluation. National Suicide Hotline 788. Discharge Disposition: HOME SELF-CARE
== END 2023-03-27 12:24 | disposition home or self-care (01) | DRG 885 ==
LOC: EC 15:26 → 3MHU 22:03
PROVIDERS: ADMIT Psychiatry & Neurology Psychiatry; ATTEND Psychiatry & Neurology Psychiatry
DX: F33.2 Major depressive disorder, recurrent severe without psychotic features (principal); T42.4X2A Poisoning by benzodiazepines, intentional self-harm, initial encounter; Z63.4 Disappearance and death of family member; Z91.52 Personal history of nonsuicidal self-harm; Z20.822 Contact with and (suspected) exposure to COVID-19
CPT/HCPCS: 80053; 80061; 80306; 81003; 82075; 82248; 83036; 84443; 85025; 87635; 99285